=== PATIENT | male | born 1960 | race Caucasian/White ===

== ENCOUNTER 2019-12-08 14:00 | Outpatient (CLI) | payer OTHER, SELFPAY | END 2019-12-08 14:01 | disposition home or self-care (01) | LOC: LAB 14:06 | PROVIDERS: Family Provider Internal Medicine; Visit Provider Specialist | DX: Z01.84 Encounter for antibody response examination (principal) | CPT/HCPCS: 36415; 86787 ==

== ENCOUNTER 2022-11-16 15:41 | Outpatient (CLI) | payer OTHER, SELFPAY ==
--- NOTE | 2022-11-16 | CTR_ITS ---
PROCEDURE INFORMATION: Exam: CT Abdomen And Pelvis Without And With Contrast Exam date and time: 11/16/2022 4:12 PM Age: 62 years old Clinical indication: Patient HX: Hematuria x 2-3 weeks, HX renal stones TECHNIQUE: Imaging protocol: Computed tomography of the abdomen and pelvis without and with contrast. Radiation optimization: All CT scans at this facility use at least one of these dose optimization techniques: automated exposure control; mA and/or kV adjustment per patient size (includes targeted exams where dose is matched to clinical indication); or iterative reconstruction. Contrast material: OMNI 350; Contrast volume: 100 ml; Contrast route: INTRAVENOUS (IV); REPORTING DATA: Count of CT and Cardiac NM exams in prior 12 months: This patient has received 0 known CTs and 0 known cardiac nuclear medicine studies in the 12 months prior to the current study. COMPARISON: No relevant prior studies available. RADIATION DOSE METRICS: Total DLP (mGy-cm): 2322.93 FINDINGS: Lungs: Left lower lobe atelectasis versus infiltrate. Mediastinal space: Distal esophageal wall thickening may be due to nondistention, please correlate for possible esophagitis Liver: Normal. No mass. Gallbladder and bile ducts: Normal. No calcified stones. No ductal dilation. Pancreas: Normal. No ductal dilation. Spleen: Normal. No splenomegaly. Adrenal glands: Normal. No mass. Kidneys and ureters: Normal. No hydronephrosis. Stomach and bowel: Diverticulosis without diverticulitis. Appendix: No evidence of appendicitis. Intraperitoneal space: Unremarkable. No free air. No significant fluid collection. Vasculature: Unremarkable. No abdominal aortic aneurysm. Lymph nodes: Unremarkable. No enlarged lymph nodes. Urinary bladder: Unremarkable as visualized. Reproductive: Unremarkable as visualized. Bones/joints: Unremarkable. No acute fracture. Soft tissues: Unremarkable. CT/CT abdomen pelvis wo/w [id number] IMPRESSION: 1. Negative for hydronephrosis, urinary calculus or acute appearing inflammatory process in the abdomen or pelvis. 2. Distal esophageal wall thickening may be due to nondistention, please correlate for possible esophagitis 3. Left lower lobe atelectasis versus infiltrate. 4. Diverticulosis without diverticulitis.
[2022-11-16] MEDS: iohexol 350 mg/mL 500 mL Btl (per mL) IV (15:56)
== END 2022-11-16 15:42 | disposition home or self-care (01) ==
LOC: RAD 15:46
PROVIDERS: PCP Family Medicine; Visit Provider Nurse Practitioner Family
DX: R31.9 Hematuria, unspecified (principal)
CPT/HCPCS: 74178; Q9967

== ENCOUNTER 2023-01-15 10:21 | Outpatient (CLI) | payer OTHER, SELFPAY ==
[2023-01-15 10:53] LABS: Basophils # 0.1 10^3/uL (0.0-0.1); Basophils % 1.1 %; Eosinophils # 0.2 10^3/uL (0.0-0.8); Eosinophils % 2.6 %; Hematocrit 44.4 % (42.0-52.0); Hemoglobin 15.3 g/dL (11.7-16.6); Lymphocytes # 2.6 10^3/uL (0.8-4.8); Lymphocytes % 40.3 %; Mean Corpuscular HGB Conc 34.5 g/dL (30.0-36.0); Mean Corpuscular Hemoglobin 30.7 pg (28.0-34.0); Mean Corpuscular Volume 89.2 fl (80-94); Monocytes # 0.7 10^3/uL (0.2-0.9); Monocytes % 10.2 %; Neutrophils # 2.99 10^3/uL (1.8-7.7); Neutrophils % 45.6 %; Nucleated Red Blood Cells % 0 %; Platelet Count 285 10^3/cmm (130-400); Red Blood Count 4.98 10^6/uL (4.1-5.3); Red Cell Distribution Width 12.5 % (12.1-15.1); White Blood Count 6.6 10^3/uL (4.0-10.0)
[2023-01-15 11:17] LABS: Anion Gap 16.1 (5-19); Blood Urea Nitrogen 19 mg/dL (8-23); Calcium 8.7 mg/dL (8.5-10.5); Carbon Dioxide 23 mmol/L (22-29); Chloride 104 mmol/L (98-107); Glomerular Filtration Rate 85.5 mL/min (90-130); Glucose 91 mg/dL (65-115); Osmolality Calculated 290 mOsm/kg (285-295); Potassium 4.1 mmol/L (3.5-5.1); Sodium 139 mmol/L (136-145)
--- NOTE | 2023-01-15 15:31 | ECG_ITS ---
[facility] Test Date: 2023-01-15 Pat Name: Tab Stephenson Department: Room: Gender: Male Telephone Services Sales Representative: : 1960 Requested By: Zach Reno Order Number: [id number] Nava MD: Levon Her M.D. Measurements Intervals [place] Rate: 75 P: 53 MT: 172 QRS: -1 QRSD: 106 T: 33 QT: 379 QTc: 423 Interpretive Statements SINUS RHYTHM INDETERMINATE AXIS PATTERN CONSISTENT WITH PULMONARY DISEASE No previous ECG available for comparison Electronically Signed On 01-15-2023 20:44:14 CDT by Levon Her M.D. [id number]
== END 2023-01-15 10:22 | disposition home or self-care (01) ==
LOC: LAB 10:25
PROVIDERS: PCP Family Medicine; Visit Provider Orthopaedic Surgery
DX: Z01.818 Encounter for other preprocedural examination (principal)
CPT/HCPCS: 36415; 80048; 85025; 93005

== ENCOUNTER 2023-01-16 12:15 | Outpatient (CLI) | payer OTHER, SELFPAY ==
--- NOTE | 2023-01-16 12:27 | XR_ITS ---
WS: [id number] Exam: XR chest 2V* [id number] Date/Time of Exam: 01/16/2023 12:27 PM Reason For Exam: PRE-SURGERY No priors. The lungs are fully expanded and clear. Normal cardiomediastinal silhouette. Mild plaque atelectasis in the left base. Bony structures are intact. XR/XR chest 2V* [id number] IMPRESSION: 1. No acute cardiopulmonary finding.
== END 2023-01-16 12:16 | disposition home or self-care (01) ==
PROVIDERS: PCP Family Medicine; Visit Provider Orthopaedic Surgery
DX: Z01.818 Encounter for other preprocedural examination (principal); S83.249A Other tear of medial meniscus, current injury, unspecified knee, initial encounter; X58.XXXA Exposure to other specified factors, initial encounter; Y93.9 Activity, unspecified; Y92.9 Unspecified place or not applicable; Y99.9 Unspecified external cause status
CPT/HCPCS: 71046

== ENCOUNTER 2025-05-20 14:19 | Outpatient (CLI) | payer OTHER, SELFPAY | END 2025-05-20 14:20 | disposition home or self-care (01) | LOC: SLEEP 14:19 | PROVIDERS: PCP Family Medicine; Referring Provider Nurse Practitioner Family; Visit Provider Internal Medicine Pulmonary Disease | DX: G47.33 Obstructive sleep apnea (adult) (pediatric) (principal); G47.36 Sleep related hypoventilation in conditions classified elsewhere | CPT/HCPCS: G0399 ==

== ENCOUNTER 2025-06-23 07:08 | Outpatient (CLI) | payer OTHER, SELFPAY ==
--- NOTE | 2025-06-23 07:13 | US_ITS ---
WS: [id number] ULTRASOUND SOFT TISSUES RIGHT axilla HISTORY: RT AXILLARY LYMPHADENOPATHY COMPARISON: None available. TECHNIQUE: 2-D and color Doppler imaging is submitted. Ultrasound is directed to the RIGHT axilla. Deep within the soft tissues is a fatty appearing lymph node versus several adjacent lymph nodes. There is a lobulated contour of this lymph node. No cortical thinning. No increased vascularity. The entire complex measures 2.3 x 1.0 x 2.4 cm. This may be a co uple of lymph nodes together. There is no concerning feature such as displacement of the fatty hilum or cortical thickening. US/US soft tissue/extremity [id number] IMPRESSION: Normal-appearing fatty lymph nodes in the RIGHT axilla. This may be a single lo bulated lymph node or several lymph nodes together. Imaging features are benign . If there is continued concern for significant adenopathy or increasing lymph node burden consider chest CT with IV contrast follow-up.
== END 2025-06-23 07:09 | disposition home or self-care (01) ==
LOC: RAD 07:10
PROVIDERS: PCP Family Medicine; Visit Provider Otolaryngology
DX: R59.9 Enlarged lymph nodes, unspecified (principal)
CPT/HCPCS: 76882